=== PATIENT | male | born 1965 | race Caucasian/White ===

== ENCOUNTER 2016-10-12 18:58 | Emergency (ER) | payer OTHER ==
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
[2016-10-12] MEDS ORDERED: Diclofenac Sodium 75 MG Tab.EC PO ONE (19:58)
[2016-10-12 20:28] VITALS: BP 127/84
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
== END 2016-10-12 20:25 | disposition home or self-care (01) ==
LOC: MW.ED 18:58
DX: S70.01XA Contusion of right hip, initial encounter (principal); V03.10XA Pedestrian on foot injured in collision with car, pick-up truck or van in traffic accident, initial encounter; Y93.01 Activity, walking, marching and hiking
CPT/HCPCS: 73502; 99283; A9270; G0390